=== PATIENT | male | born 1950 | race Caucasian/White ===

== ENCOUNTER → 2016-10-03 | Outpatient (CLI) | payer OTHER, MEDICARE | LOC: BHFA 14:00 | PROVIDERS: ATTEND Internal Medicine Cardiovascular Disease | DX: I48.91 Unspecified atrial fibrillation (principal) ==

== ENCOUNTER → 2018-01-01 | Outpatient (CLI) | payer OTHER, MEDICARE | LOC: BHFA 13:00 | PROVIDERS: ATTEND Internal Medicine Cardiovascular Disease | DX: I48.91 Unspecified atrial fibrillation (principal) ==

== ENCOUNTER 2018-04-08 16:33 | Emergency (ER) | payer OTHER, MEDICARE ==
--- NOTE | 2018-04-08 16:38 | EDPHY ---
H & P Time Seen by Provider: 04/08/18 16:33 HPI/ROS: CHIEF COMPLAINT: Head injury post mechanical fall HISTORY OF PRESENT ILLNESS: 67-year-old male, history of atrial fibrillation, daily aspirin only, arrives via ambulance after sustaining chemical fall. He was taking a walk, tripped on a curb, fell forward impacting his head. His hands were in his pocket and he was unable to stops fall. No alcohol or drug use. No midline C-spine pain. No peripheral paresthesia, weakness, numbness. PRIMARY CARE PROVIDER: Dr. Raza Benitez REVIEW OF SYSTEMS: 10 systems reviewed and negative with the exception of the elements mentioned in the history of present illness PAST MEDICAL/SURGICAL HISTORY: Atrial fibrillation. no anticoagulant use, no relevant medical/surgical history SOCIAL HISTORY: denies alcohol use at time of incident PHYSICAL EXAM 1) GENERAL: Well-developed, well-nourished, alert and oriented. Appears to be in no acute distress. Answering questions appropriately. 2) HEAD: Normocephalic, right eyebrow laceration measuring 4 cm, transverse linear 3) HEENT: Pupils equal, round, reactive to light bilaterally. Negative Horners. Nasopharynx, oropharynx, clear. No deformity or angulation of nose. No septal hematoma. No rhinorrhea. No oral trauma. Ears bilaterally with normal tympanic membranes. No hemotympanum. No fluid or blood in the external auditory canal. No raccoon eyes. No Linton sign. Teeth are normally aligned with no gross malocclusion, TMJ bilaterally nontender, facial bones nontender including the zygomatic arch, maxilla mandible. 4) NECK: No cervical collar is on. Posterior cervical spine is nontender, no stepoff, no effusion. Full range of motion which does not elicit any midline cervical spine pain, no posterior midline tenderness, no step-off. 5) LUNGS: Clear to auscultation bilaterally, no wheezes, no rhonchi, no retractions. No obvious signs of trauma. No chest wall pain. No flaring, no grunting. Moving symmetrically. No crepitus. 6) HEART: [Regular rate and rhythm, 7) ABDOMEN: No guarding, no rebound, no focal tenderness, no peritoneal signs, no signs of trauma, no ecchymosis 8) MUSCULOSKELETAL: Moving all extremities, no focal areas of tenderness, no obvious trauma. 9) BACK: No midline vertebral tenderness, no fluctuance, no step-off, no obvious trauma, no visual or palpable abnormality. 10) SKIN: laceration right eyebrow DIFFERENTIAL DIAGNOSIS: Not necessarily in any particular order, my differential diagnosis includes, but is not limited to, concussion, skull fracture, intraparenchymal contusion, subarachnoid, subdural and epidural hematoma. The patient understands that this diagnosis is provisional and can never be 100% accurate. Constitutional: Initial Vital Signs Temperature (C) 36.7 C 04/08/18 16:38 Heart Rate 107 H 04/08/18 16:38 Respiratory Rate 18 04/08/18 16:38 Blood Pressure 159/109 H 04/08/18 16:38 O2 Sat (%) 97 04/08/18 16:38 O2 Delivery Mode Room Air Allergies/Adverse Reactions: No Known Allergies Allergy (Unverified 04/08/18 16:43) Home Medications: Medication Instructions Recorded Aspirin 325 mg (*) 04/08/18 Diltiazem 04/08/18 HCTZ (*) 04/08/18 Losartan Potassium 04/08/18 Propafenone HCl 04/08/18 Medical Decision Making - Diagnostics Imaging Results: Imaging Impressions Head CT 04/08/18 16:43 Impression: 1. Mild cerebral and cerebellar atrophy. 2. No acute hemorrhage, hydrocephalus, or mass effect. 3. Cerebrovascular atherosclerosis. 4. No definite acute infarct. 5. Microvascular ischemic gliosis. 6. No epidural or subdural hematoma. Findings and recommendations discussed with Emergency Department physician, Shlomo Zambrano PA-C, at 1731 hours, on April 08, 2018. Final report concurs with initial preliminary interpretation. Images reviewed myself Procedures: Procedure: Laceration repair. I explained the indications, risks and benefits for both laceration repair and anesthetic administration. Verbal consent was obtained from the patient. The laceration on the right eyebrow region was anesthetized using 0.5% bupivicaine with epinephrine. After anesthetic administered the patient was observed for a period of time and had no apparent adverse effects. The wound was cleaned, prepped, draped in normal sterile fashion and explored to its base. No foreign body seen, no foreign bodies palpated. The wound was repaired with 3 simple interrupted 6 0 Vicryl subcutaneous sutures in 10 simple interrupted 6 0 Prolene simple interrupted sutures. The wound repair was complex. The procedure was performed by myself. Patient has been informed that scarring will occur, although efforts have been made to minimize this. ED Course/Re-evaluation: 4:43 p.m.: Head CT ordered in this patient for trauma for the following indication: Greater than 65 years old. 5:47 p.m.: Patient's wound has been closed primarily in the ER. He has negative CT imaging. Discussed his imaging results. He is answering questions appropriately. Has no gross neurologic deficits on exam or complaints of neurologic deficits/defects. Plan will be discharged with my usual customary head injury precautions instructions. He feels comfortable being discharged. All questions and concerns addressed by myself. Care of patient under supervision of secondary supervising physician Dr Graves - Data Points Medications Given: Discontinued Medications Diphtheria/Tetanus/Acell Pertussis (Boostrix) 0.5 ml IM .ONCE ONE Stop: 04/08/18 16:44 Last Admin: 04/08/18 17:22 Dose: 0.5 ml Departure - Departure Disposition: Home, Routine, Self-Care Clinical Impression: Head injury due to trauma Qualifiers: Encounter type: initial encounter Qualified Code(s): S09.90XA - Unspecified injury of head, initial encounter Forehead laceration Qualifiers: Encounter type: initial encounter Qualified Code(s): S01.81XA - Laceration without foreign body of other part of head, initial encounter Condition: Good Instructions: Laceration (ED), Head Injury (ED) Additional Instructions: ALTHOUGH THERE IS NO EVIDENCE OF SERIOUS HEAD INJURY AT THIS TIME, DELAYED SIGNS CAN APPEAR 24 TO 48 HOURS AFTER INJURY. PLEASE RETURN TO THE EMERGENCY DEPARTMENT (ED) IMMEDIATELY IF YOU HAVE INCREASED HEADACHE, PERSISTENT HEADACHE , VOMITING, WEAKNESS, CONFUSION OR VISUAL PROBLEMS. WE RECOMMEND THAT YOU DO NOT RESUME CONTACT SPORTS OR ACTIVITIES THAT TAKE COORDINATION OR BALANCE SUCH SKIING OR RIDING A BICYCLE UNTIL CLEARED TO DO SO BY YOUR DOCTOR OR BY A NEUROLOGIST. Referrals: Patient,NotPresent [Primary Care Provider] - As per Instructions RETURN, TO THE ER IN 5 DAYS FOR SUTURE REMOVAL [Other] - As per Instructions
[2018-04-08] MEDS ORDERED: TDAP ADULT 0.5 ML INJ (BOOSTRIX) IM ONE (16:43)
[2018-04-08 17:51] VITALS: BP 147/86
== END 2018-04-08 17:58 | disposition home or self-care (01) ==
LOC: EDUNIT#
PROC: 08QNXZZ Repair Right Upper Eyelid, External Approach (ICD-10-PCS; principal; 2018-04-08)
DX: S01.111A Laceration without foreign body of right eyelid and periocular area, initial encounter (principal); Z23 Encounter for immunization; Y93.9 Activity, unspecified; Y92.9 Unspecified place or not applicable; Y99.9 Unspecified external cause status

== ENCOUNTER → 2018-08-11 | Outpatient (CLI) | payer OTHER, MEDICARE | LOC: BHFA 14:00 | PROVIDERS: ATTEND Internal Medicine Interventional Cardiology | DX: I48.91 Unspecified atrial fibrillation (principal) ==